=== PATIENT | male | born 1940 | race African-American/Black ===

== ENCOUNTER 2019-03-06 10:26 | Emergency (ER) | payer OTHER ==
[2019-03-06 10:39] VITALS: BP 108/72; PULSE 71; TEMP 98.5; BMI 30.2
--- NOTE | 2019-03-06 11:27 | PDOC ---
History of Present Illness - General Chief Complaint: Eye Problem Stated Complaint: LT EYE PAIN Time Seen by Provider: 03/06/19 11:14 - History of Present Illness Initial Comments: 03/06/19 11:24 78 y/o M with multiple comorbities presents for evaluation of bilateral eye irritation and crusting times 3 days Past History - Past Medical History Allergies/Adverse Reactions: Allergies Allergy/AdvReac Type Severity Reaction Status Date / Time propoxyphene HCl Allergy Verified 03/06/19 10:33 [From Nitesh] Home Medications: Ambulatory Orders Albuterol Sulfate 0.5% [Ventolin 0.5% Nebulizing Soln. -] 1 neb NEB Q4H PRN #1 vial 03/24/13 Aripiprazole [Abilify -] 15 mg PO DAILY #0 tablet 03/24/13 Aspirin [ASA -] 325 mg PO DAILY #0 tablet 03/24/13 Atorvastatin Ca [Lipitor] 10 mg PO HS #0 tablet 03/24/13 Furosemide [Lasix -] 20 mg PO DAILY #0 tablet 03/24/13 Insulin (Novolog) [Novolog Flexpen -] 15 units SQ AC #1 pen 03/24/13 Lisinopril [Prinivil] 10 mg PO DAILY #0 tablet 03/24/13 Metoprolol Tartrate [Lopressor -] 25 mg PO BID #0 tab 03/24/13 Pantoprazole Sodium [Protonix -] 40 mg PO DAILY #0 tablet.ec 03/24/13 Tiotropium [place] [Spiriva] 1 inh IH DAILY #0 inh 03/24/13 Tobramycin 0.3% Ophth Soln [Tobrex Ophthalmic Solution -] 1 drop OU Q4HWA 5 Days #1 bottle 03/06/19 Cancer: Yes (PROSTATE CA) Cardiac Disorders: No COPD: No Diabetes: Yes HTN: Yes Hypercholesterolemia: Yes - Surgical History Abdominal Surgery: Yes (HERNIA) - Immunization History Immunization Up to Date: Yes - Suicide/Smoking/Psychosocial Hx Smoking Status: No Smoking History: Never smoked Have you smoked in the past 12 months: No Number of Cigarettes Smoked Daily: 0 Hx Alcohol Use: No Drug/Substance Use Hx: No Substance Use Type: None Hx Substance Use Treatment: No Review of Systems - Review of Systems Constitutional: No: Fever HEENTM: Yes: See HPI, Tearing *Physical Exam - Vital Signs Last Vital Signs Temp Pulse Resp BP Pulse Ox 98.5 F 71 18 108/72 100 03/06/19 10:33 03/06/19 10:33 03/06/19 10:33 03/06/19 10:33 03/06/19 10:33 - Physical Exam Comments: 03/06/19 11:25 Bilateral conjunctiva injection with crusting on the lids left eye worse than right crusted closed. Medical Decision Making - Medical Decision Making 03/06/19 11:25 Bacterial conjuntivitis will treat with tobramycin *DC/Admit/Observation/Transfer Diagnosis at time of Disposition: Bacterial conjunctivitis of both eyes - Discharge Dispostion Disposition: HOME Condition at time of disposition: Stable Decision to Admit order: No - Prescriptions Prescriptions: Tobramycin 0.3% Ophth Soln [Tobrex Ophthalmic Solution -] 1 drop OU Q4HWA 5 Days #1 bottle - Referrals Referrals: Wei Albarado [Primary Care Provider] - Sushil Seaman MD [Staff Physician] - - Patient Instructions Printed Discharge Instructions: How to Instill Eye Drops, Conjunctivitis, DI for Conjunctivitis Additional Instructions: Please follow-up with ophthalmology without fail in 1-2 days for further evaluation and treatment options. Return to the emergency room for worsening symptoms. Please use the eyedrops as directed. - Post Discharge Activity
[2019-03-06] MEDS ORDERED: TOBRAMYCIN 0.3% OPHTH SOLN 5 ML BOTTLE ONE (11:31)
== END 2019-03-06 11:42 | disposition home or self-care (01) ==
LOC: JERFT 10:26
DX: H10.33 Unspecified acute conjunctivitis, bilateral (principal); B96.89 Other specified bacterial agents as the cause of diseases classified elsewhere; I10 Essential (primary) hypertension; E78.00 Pure hypercholesterolemia, unspecified; E11.9 Type 2 diabetes mellitus without complications; Z79.4 Long term (current) use of insulin; Z85.46 Personal history of malignant neoplasm of prostate
CPT/HCPCS: 99281-25

== ENCOUNTER 2023-01-25 16:55 | Inpatient (IN) | payer OTHER ==
[2023-01-25 19:03] LABS: INR 1.03 (0.83-1.09)
[2023-01-25 19:15] LABS: POTASSIUM 5.4 mmol/L (3.5-5.1)
[2023-01-25 19:17] LABS: ALBUMIN 3.4 g/dl (3.4-5.0); BLOOD UREA NITROGEN 30.2 mg/dL (7-18); CALCIUM 9.1 mg/dL (8.5-10.1)
[2023-01-25 19:20] LABS: CREATININE 1.2 mg/dL (0.55-1.3)
[2023-01-25 19:22] LABS: BASO % 0.3 % (0-2.0); BILIRUBIN,TOTAL 0.5 mg/dL (0.2-1); EOS % 1.4 % (0-4.5); HEMATOCRIT 29.3 % (35.4-49); HEMOGLOBIN 9.5 GM/dL (11.7-16.9); LYMPH % 15.9 % (8-40); MCH 27.9 pg (25.7-33.7); MCHC 32.5 g/dl (32.0-35.9); MEAN CELL VOLUME 85.9 fl (80-96); MEAN PLT VOLUME 9.2 fl (7.5-11.1); MONO % 8.6 % (3.8-10.2); NEUT % 73.8 % (42.8-82.8); PLATELET COUNT 202 10^3/uL (134-434); RBC 3.41 M/mm3 (4.00-5.60); RDW 12.6 % (11.9-15.9); TOT PROT 6.8 g/dl (6.4-8.2); WHITE BLOOD COUNT 9.2 K/mm3 (4.0-10.0)
[2023-01-25 22:02] LABS: URINE APPEARANCE CLEAR; URINE BILIRUBIN NEGATIVE (NEGATIVE); URINE COLOR YELLOW; URINE GLUCOSE (UA) NEGATIVE (NEGATIVE); URINE KETONE TRACE (NEGATIVE); URINE LEUK ESTERASE NEGATIVE (NEGATIVE); URINE NITRITE NEGATIVE (NEGATIVE); URINE PROTEIN TRACE (NEGATIVE)
[2023-01-25] MEDS ORDERED: ASPIRIN 81 MG CHEWABLE TABLETS PO ONE (23:37)
[2023-01-25] MEDS ORDERED: ATORVASTATIN CA 80 MG TABLET (FP) PO ONE (23:37)
[2023-01-25] MEDS ORDERED: LIDOCAINE 5% TOPICAL PATCH TP ONE (23:39)
[2023-01-26] MEDS ORDERED: ATORVASTATIN CA 80 MG TABLET (FP) ONE (00:04)
[2023-01-26] MEDS ORDERED: LIDOCAINE 5% TOPICAL PATCH ONE (00:05)
[2023-01-26] MEDS ORDERED: ASPIRIN 81 MG CHEWABLE TABLETS ONE (00:05)
[2023-01-26] MEDS ORDERED: ALBUTEROL SO4 0.5 % INH SOLN 2.5 MG/0.5 ML VIAL.NEB. NEB PRN (06:34)
[2023-01-26] MEDS: INSULIN (NOVOLOG) ASPART 100 UNITS/ML 10ML VIAL SQ SCH ×3 (10:02→17:17)
[2023-01-26] MEDS ORDERED: ARIPiprazole 5 MG TABLET ONE (10:05)
[2023-01-26] MEDS ORDERED: HEPARIN NA (PORCINE) 5,000 UNITS/ML 1ML VIAL ONE (10:05)
[2023-01-26] MEDS: HEPARIN NA (PORCINE) 5,000 UNITS/ML 1ML VIAL SQ SCH ×2 (11:00→22:30)
[2023-01-26] MEDS: ARIPiprazole 5 MG TABLET PO SCH (11:00)
[2023-01-26] MEDS: ASPIRIN 325 MG TABLET PO SCH (11:14)
[2023-01-26] MEDS: LISINOPRIL 10 MG TABLET PO SCH (11:16)
[2023-01-26] MEDS: PANTOPRAZOLE 40 MG TABLET PO SCH (11:16)
[2023-01-26] MEDS: METOPROLOL TARTRATE 25 MG TABLET (FP) PO SCH ×2 (11:16→22:30)
[2023-01-26] MEDS: FUROSEMIDE 20 MG TABLET (FP) PO SCH (11:16)
[2023-01-26] MEDS: TIOTROPIUM BROMIDE 2.5 MCG (SPIRIVA) RESPIMAT INHALER IH SCH (11:17)
[2023-01-26] MEDS ORDERED: LIDOCAINE PATCH REMOVAL MC ONE (12:00)
[2023-01-26] MEDS: ATORVASTATIN CA 10 MG TABLET (FP) PO SCH (22:29)
[2023-01-27] MEDS: INSULIN (NOVOLOG) ASPART 100 UNITS/ML 10ML VIAL SQ SCH ×3 (07:59→16:58)
[2023-01-27] MEDS: PANTOPRAZOLE 40 MG TABLET PO SCH (10:45)
[2023-01-27] MEDS: METOPROLOL TARTRATE 25 MG TABLET (FP) PO SCH ×2 (10:45→22:13)
[2023-01-27] MEDS: HEPARIN NA (PORCINE) 5,000 UNITS/ML 1ML VIAL SQ SCH ×2 (10:45→22:13)
[2023-01-27] MEDS: FUROSEMIDE 20 MG TABLET (FP) PO SCH (10:45)
[2023-01-27] MEDS: ASPIRIN 325 MG TABLET PO SCH (10:45)
[2023-01-27] MEDS: LISINOPRIL 10 MG TABLET PO SCH (10:45)
[2023-01-27] MEDS: ACETAMINOPHEN 325 MG TABLET (FP) PO PRN (10:48)
[2023-01-27] MEDS: TIOTROPIUM BROMIDE 2.5 MCG (SPIRIVA) RESPIMAT INHALER IH SCH (12:25)
[2023-01-27] MEDS: ARIPiprazole 5 MG TABLET PO SCH (12:25)
[2023-01-27 14:56] LABS: BASO % 0.6 % (0-2.0); EOS % 2.7 % (0-4.5); HEMATOCRIT 29.7 % (35.4-49); HEMOGLOBIN 9.9 GM/dL (11.7-16.9); LYMPH % 22.6 % (8-40); MCH 28.5 pg (25.7-33.7); MCHC 33.2 g/dl (32.0-35.9); MEAN CELL VOLUME 85.8 fl (80-96); MEAN PLT VOLUME 9.9 fl (7.5-11.1); MONO % 9.1 % (3.8-10.2); PLATELET COUNT 191 10^3/uL (134-434); RBC 3.46 M/mm3 (4.00-5.60); RDW 12.5 % (11.9-15.9); WHITE BLOOD COUNT 8.8 K/mm3 (4.0-10.0)
[2023-01-27 15:22] LABS: POTASSIUM 4.4 mmol/L (3.5-5.1)
[2023-01-27 15:25] LABS: CALCIUM 9.3 mg/dL (8.5-10.1)
[2023-01-27 15:26] LABS: ALBUMIN 3.1 g/dl (3.4-5.0)
[2023-01-27 15:31] LABS: BILIRUBIN,TOTAL 0.7 mg/dL (0.2-1); TOT PROT 6.3 g/dl (6.4-8.2)
[2023-01-27] MEDS: ATORVASTATIN CA 10 MG TABLET (FP) PO SCH (22:13)
[2023-01-28] MEDS: INSULIN (NOVOLOG) ASPART 100 UNITS/ML 10ML VIAL SQ SCH ×3 (08:52→16:33)
[2023-01-28] MEDS: HEPARIN NA (PORCINE) 5,000 UNITS/ML 1ML VIAL SQ SCH ×2 (09:22→21:41)
[2023-01-28] MEDS: PANTOPRAZOLE 40 MG TABLET PO SCH (09:23)
[2023-01-28] MEDS: ACETAMINOPHEN 325 MG TABLET (FP) PO PRN (09:23)
[2023-01-28] MEDS: ARIPiprazole 5 MG TABLET PO SCH (09:23)
[2023-01-28] MEDS: ASPIRIN 325 MG TABLET PO SCH (09:23)
[2023-01-28] MEDS: METOPROLOL TARTRATE 25 MG TABLET (FP) PO SCH ×2 (09:24→21:41)
[2023-01-28] MEDS: FUROSEMIDE 20 MG TABLET (FP) PO SCH (09:25)
[2023-01-28] MEDS: LISINOPRIL 10 MG TABLET PO SCH (09:25)
[2023-01-28] MEDS: TIOTROPIUM BROMIDE 2.5 MCG (SPIRIVA) RESPIMAT INHALER IH SCH (09:26)
[2023-01-28] MEDS: ATORVASTATIN CA 10 MG TABLET (FP) PO SCH (21:41)
[2023-01-29] MEDS: INSULIN (NOVOLOG) ASPART 100 UNITS/ML 10ML VIAL SQ SCH ×3 (06:44→17:10)
[2023-01-29] MEDS: HEPARIN NA (PORCINE) 5,000 UNITS/ML 1ML VIAL SQ SCH ×2 (09:24→21:19)
[2023-01-29] MEDS: METOPROLOL TARTRATE 25 MG TABLET (FP) PO SCH ×2 (09:25→21:17)
[2023-01-29] MEDS: LISINOPRIL 10 MG TABLET PO SCH (09:25)
[2023-01-29] MEDS: PANTOPRAZOLE 40 MG TABLET PO SCH (09:25)
[2023-01-29] MEDS: FUROSEMIDE 20 MG TABLET (FP) PO SCH (09:25)
[2023-01-29] MEDS: ASPIRIN 325 MG TABLET PO SCH (09:25)
[2023-01-29] MEDS: ARIPiprazole 5 MG TABLET PO SCH (09:26)
[2023-01-29] MEDS: TIOTROPIUM BROMIDE 2.5 MCG (SPIRIVA) RESPIMAT INHALER IH SCH (09:31)
[2023-01-29 18:11] LABS: BASO % 0.4 % (0-2.0); EOS % 1.7 % (0-4.5); HEMATOCRIT 30.8 % (35.4-49); HEMOGLOBIN 9.8 GM/dL (11.7-16.9); MCH 27.6 pg (25.7-33.7); MCHC 31.9 g/dl (32.0-35.9); MEAN CELL VOLUME 86.4 fl (80-96); MEAN PLT VOLUME 9.6 fl (7.5-11.1); MONO % 8.9 % (3.8-10.2); PLATELET COUNT 203 10^3/uL (134-434); RBC 3.56 M/mm3 (4.00-5.60); RDW 12.9 % (11.9-15.9); WHITE BLOOD COUNT 8.3 K/mm3 (4.0-10.0)
[2023-01-29 19:00] LABS: ERYTHROCYTE SEDIMENTATION RATE 18 mm/hr (0-20)
[2023-01-29] MEDS: ACETAMINOPHEN 500 MG TABLET (FP) PO PRN (21:15)
[2023-01-29] MEDS: ATORVASTATIN CA 10 MG TABLET (FP) PO SCH (21:18)
[2023-01-30] MEDS: INSULIN (NOVOLOG) ASPART 100 UNITS/ML 10ML VIAL SQ SCH ×3 (07:05→17:14)
[2023-01-30] MEDS: LISINOPRIL 10 MG TABLET PO SCH (09:27)
[2023-01-30] MEDS: PANTOPRAZOLE 40 MG TABLET PO SCH (09:27)
[2023-01-30] MEDS: FUROSEMIDE 20 MG TABLET (FP) PO SCH (09:27)
[2023-01-30] MEDS: ASPIRIN 325 MG TABLET PO SCH (09:27)
[2023-01-30] MEDS: ARIPiprazole 5 MG TABLET PO SCH (09:28)
[2023-01-30] MEDS: HEPARIN NA (PORCINE) 5,000 UNITS/ML 1ML VIAL SQ SCH ×2 (09:28→22:45)
[2023-01-30] MEDS: METOPROLOL TARTRATE 25 MG TABLET (FP) PO SCH ×2 (09:28→22:42)
[2023-01-30] MEDS: TIOTROPIUM BROMIDE 2.5 MCG (SPIRIVA) RESPIMAT INHALER IH SCH (09:31)
[2023-01-30] MEDS: ACETAMINOPHEN 325 MG TABLET (FP) PO PRN (09:44)
[2023-01-30] MEDS: ACETAMINOPHEN 500 MG TABLET (FP) PO PRN (22:42)
[2023-01-30] MEDS: ATORVASTATIN CA 10 MG TABLET (FP) PO SCH (22:44)
[2023-01-31] MEDS: INSULIN (NOVOLOG) ASPART 100 UNITS/ML 10ML VIAL SQ SCH ×3 (06:21→17:27)
[2023-01-31 08:19] LABS: BASO % 0.5 % (0-2.0); EOS % 2.4 % (0-4.5); HEMATOCRIT 28.8 % (35.4-49); HEMOGLOBIN 9.7 GM/dL (11.7-16.9); LYMPH % 25.3 % (8-40); MCH 28.9 pg (25.7-33.7); MCHC 33.8 g/dl (32.0-35.9); MEAN CELL VOLUME 85.6 fl (80-96); MONO % 8.8 % (3.8-10.2); PLATELET COUNT 214 10^3/uL (134-434); RBC 3.36 M/mm3 (4.00-5.60); RDW 12.5 % (11.9-15.9)
[2023-01-31 08:58] LABS: ALBUMIN 3.1 g/dl (3.4-5.0); BILIRUBIN,TOTAL 0.8 mg/dL (0.2-1); BLOOD UREA NITROGEN 24.8 mg/dL (7-18); CALCIUM 9.2 mg/dL (8.5-10.1); CREATININE 1.1 mg/dL (0.55-1.3); POTASSIUM 4.4 mmol/L (3.5-5.1); TOT PROT 6.4 g/dl (6.4-8.2)
[2023-01-31] MEDS: TIOTROPIUM BROMIDE 2.5 MCG (SPIRIVA) RESPIMAT INHALER IH SCH (10:24)
[2023-01-31] MEDS: PANTOPRAZOLE 40 MG TABLET PO SCH (10:25)
[2023-01-31] MEDS: FERROUS SO4 325 MG TABLET (FP) PO SCH (10:25)
[2023-01-31] MEDS: LISINOPRIL 10 MG TABLET PO SCH (10:25)
[2023-01-31] MEDS: ARIPiprazole 5 MG TABLET PO SCH (10:25)
[2023-01-31] MEDS: HEPARIN NA (PORCINE) 5,000 UNITS/ML 1ML VIAL SQ SCH ×2 (10:25→22:28)
[2023-01-31] MEDS: MULTIVITAMINS (DAILY MVI) TABLET (FP) PO SCH (10:25)
[2023-01-31] MEDS: METOPROLOL TARTRATE 25 MG TABLET (FP) PO SCH ×3 (10:25→22:29)
[2023-01-31] MEDS: ASPIRIN 325 MG TABLET PO SCH (10:26)
[2023-01-31] MEDS: FUROSEMIDE 20 MG TABLET (FP) PO SCH (10:26)
[2023-01-31] MEDS: ATORVASTATIN CA 10 MG TABLET (FP) PO SCH (22:28)
[2023-02-01] MEDS: INSULIN (NOVOLOG) ASPART 100 UNITS/ML 10ML VIAL SQ SCH ×3 (06:04→17:01)
[2023-02-01] MEDS: MULTIVITAMINS (DAILY MVI) TABLET (FP) PO SCH (09:54)
[2023-02-01] MEDS: ASPIRIN 325 MG TABLET PO SCH (09:54)
[2023-02-01] MEDS: PANTOPRAZOLE 40 MG TABLET PO SCH (09:55)
[2023-02-01] MEDS: FUROSEMIDE 20 MG TABLET (FP) PO SCH (09:55)
[2023-02-01] MEDS: METOPROLOL TARTRATE 25 MG TABLET (FP) PO SCH ×2 (09:55→21:56)
[2023-02-01] MEDS: FERROUS SO4 325 MG TABLET (FP) PO SCH (09:55)
[2023-02-01] MEDS: LISINOPRIL 10 MG TABLET PO SCH (09:55)
[2023-02-01] MEDS: ARIPiprazole 5 MG TABLET PO SCH (09:55)
[2023-02-01] MEDS: HEPARIN NA (PORCINE) 5,000 UNITS/ML 1ML VIAL SQ SCH ×2 (09:55→21:55)
[2023-02-01] MEDS: TIOTROPIUM BROMIDE 2.5 MCG (SPIRIVA) RESPIMAT INHALER IH SCH (09:55)
[2023-02-01] MEDS ORDERED: INSULIN (NOVOLOG) ASPART 100 UNITS/ML 10ML VIAL ONE (10:50)
[2023-02-01] MEDS ORDERED: SODIUM CHLORIDE 1,000 ML IV SCH (18:45)
[2023-02-01] MEDS: ATORVASTATIN CA 10 MG TABLET (FP) PO SCH (21:56)
[2023-02-02] MEDS: INSULIN (NOVOLOG) ASPART 100 UNITS/ML 10ML VIAL SQ SCH ×3 (06:52→17:41)
[2023-02-02] MEDS: FERROUS SO4 325 MG TABLET (FP) PO SCH (09:52)
[2023-02-02] MEDS: ASPIRIN 325 MG TABLET PO SCH (09:52)
[2023-02-02] MEDS: METOPROLOL TARTRATE 25 MG TABLET (FP) PO SCH ×2 (09:52→21:34)
[2023-02-02] MEDS: MULTIVITAMINS (DAILY MVI) TABLET (FP) PO SCH (09:52)
[2023-02-02] MEDS: LISINOPRIL 10 MG TABLET PO SCH (09:52)
[2023-02-02] MEDS: PANTOPRAZOLE 40 MG TABLET PO SCH (09:52)
[2023-02-02] MEDS: HEPARIN NA (PORCINE) 5,000 UNITS/ML 1ML VIAL SQ SCH ×2 (09:52→21:35)
[2023-02-02] MEDS: ARIPiprazole 5 MG TABLET PO SCH (09:53)
[2023-02-02] MEDS: TIOTROPIUM BROMIDE 2.5 MCG (SPIRIVA) RESPIMAT INHALER IH SCH (09:53)
[2023-02-02 11:46] LABS: BASO % 0.7 % (0-2.0); HEMATOCRIT 27.1 % (35.4-49); HEMOGLOBIN 9.1 GM/dL (11.7-16.9); MCH 29.1 pg (25.7-33.7); MCHC 33.7 g/dl (32.0-35.9); MEAN CELL VOLUME 86.4 fl (80-96); MONO % 10.2 % (3.8-10.2); NEUT % 63.1 % (42.8-82.8); PLATELET COUNT 214 10^3/uL (134-434); RBC 3.14 M/mm3 (4.00-5.60); RDW 12.5 % (11.9-15.9); WHITE BLOOD COUNT 7.6 K/mm3 (4.0-10.0)
[2023-02-02 12:09] LABS: POTASSIUM 4.4 mmol/L (3.5-5.1)
[2023-02-02 12:11] LABS: CALCIUM 9.1 mg/dL (8.5-10.1)
[2023-02-02 12:12] LABS: ALBUMIN 3.1 g/dl (3.4-5.0); BLOOD UREA NITROGEN 27.2 mg/dL (7-18)
[2023-02-02 12:15] LABS: CREATININE 1.1 mg/dL (0.55-1.3)
[2023-02-02 12:16] LABS: BILIRUBIN,TOTAL 0.6 mg/dL (0.2-1); TOT PROT 6.4 g/dl (6.4-8.2)
[2023-02-02 14:23] VITALS: BMI 29.2
[2023-02-02] MEDS: ATORVASTATIN CA 10 MG TABLET (FP) PO SCH (21:36)
[2023-02-03] MEDS: INSULIN (NOVOLOG) ASPART 100 UNITS/ML 10ML VIAL SQ SCH ×2 (06:28→12:16)
[2023-02-03 06:31] VITALS: RESP 18
[2023-02-03] MEDS: FERROUS SO4 325 MG TABLET (FP) PO SCH (10:57)
[2023-02-03] MEDS: ASPIRIN 325 MG TABLET PO SCH (10:57)
[2023-02-03] MEDS: MULTIVITAMINS (DAILY MVI) TABLET (FP) PO SCH (10:57)
[2023-02-03] MEDS: METOPROLOL TARTRATE 25 MG TABLET (FP) PO SCH (10:57)
[2023-02-03] MEDS: PANTOPRAZOLE 40 MG TABLET PO SCH (10:57)
[2023-02-03] MEDS: LISINOPRIL 10 MG TABLET PO SCH (10:57)
[2023-02-03] MEDS: HEPARIN NA (PORCINE) 5,000 UNITS/ML 1ML VIAL SQ SCH (10:57)
[2023-02-03] MEDS: ARIPiprazole 5 MG TABLET PO SCH (10:58)
[2023-02-03] MEDS: TIOTROPIUM BROMIDE 2.5 MCG (SPIRIVA) RESPIMAT INHALER IH SCH (10:58)
[2023-02-03 14:31] VITALS: BP 131/61; PULSE 60; TEMP 97.8
== END 2023-02-03 19:35 | disposition home or self-care (01) | DRG 66 ==
LOC: JER 16:55 → INTOOBSV 23:20 → JERBED 23:20 → UNDOADMOB 23:20 → OBSVTOIN 01-26 13:45 → JERBED 01-26 13:45 → J4W 01-26 14:35
PROVIDERS: ADMIT Specialist; ATTEND Specialist
DX: I63.89 Other cerebral infarction (principal); I10 Essential (primary) hypertension; E78.5 Hyperlipidemia, unspecified; E11.9 Type 2 diabetes mellitus without complications; I44.0 Atrioventricular block, first degree; M25.552 Pain in left hip; R29.700 NIHSS score 0; R55 Syncope and collapse; D64.9 Anemia, unspecified; N32.0 Bladder-neck obstruction; E87.5 Hyperkalemia; E86.0 Dehydration; H10.9 Unspecified conjunctivitis; S70.02XA Contusion of left hip, initial encounter; W18.30XA Fall on same level, unspecified, initial encounter; Y92.090 Kitchen in other non-institutional residence as the place of occurrence of the external cause; Z85.46 Personal history of malignant neoplasm of prostate
CPT/HCPCS: 0241U-QW; 36415; 70450-TC; 70551-TC; 71045-TC-FY; 72125-TC; 72170-TC-FY; 72192-TC; 73502-TC-LT-FY; 73552-TC-LT-FY; 80053; 81003; 82550; 82607; 82728; 82962; 83540; 83880; 84155; 84165; 84443; 84484; 85025; 85610; 85651; 85730; 87086; 93005; 93010; 93306-TC; 93880-TC; 97116-GP; 97162-GP; 99285-25; C9803-CS; J1644; U0003; U0005

== ENCOUNTER 2023-06-20 14:19 | Emergency (ER) | payer OTHER ==
[2023-06-20 14:26] VITALS: BP 131/63; PULSE 101; RESP 18; TEMP 99.5; BMI 31.3
== END 2023-06-20 15:23 | disposition home or self-care (01) ==
LOC: JERFT 14:19
DX: H57.89 Other specified disorders of eye and adnexa (principal); H57.11 Ocular pain, right eye; H10.31 Unspecified acute conjunctivitis, right eye; H04.201 Unspecified epiphora, right side
CPT/HCPCS: 99283-25